=== PATIENT | female | born 1940 | race Caucasian/White ===

== ENCOUNTER → 2017-01-11 | Outpatient (CLI) | payer MEDICARE ==
[~2017-01-11] MED LIST: AMIO400T4 PO; AMLO10TA2 PO; AMLO5TAB2 PO; AMLO5TAB4 PO; AMOX1TAB64 PO; ASPI-515 PO; ATOR40TA78 PO; CHOL10003 PO; CHOL20002 PO; DABI150C PO; DABI75CA3 PO; DOCU-30 PO; DOXY100T PO; FENO48TA5 PO; FENO54TA17 PO; FURO-92 PO; FURO-93 PO; FURO20TA3 PO; LEVO500T33 PO; LOSA50TA2 PO; NEBI10TA3 PO; NEBI2.5T2 PO; NEBI20TA2 PO; POLY17PO5 PO; POTA10TA PO; POTA20PA8 PO; POTA20TA89 PO; PRAV10TA2 PO; TRAM50TA2 PO; VALS320T2 PO; WARF5TAB PO
== END | disposition home or self-care (01) ==
LOC: LAB 06:59
PROVIDERS: ATTEND Nurse Practitioner Family
DX: I08.1 Rheumatic disorders of both mitral and tricuspid valves (principal)
CPT/HCPCS: 36415; 85610

== ENCOUNTER → 2017-01-24 | Outpatient (CLI) | payer MEDICARE | END | disposition home or self-care (01) | LOC: LAB 07:04 | PROVIDERS: ATTEND Nurse Practitioner Family | DX: I34.0 Nonrheumatic mitral (valve) insufficiency (principal); I34.1 Nonrheumatic mitral (valve) prolapse | CPT/HCPCS: 36415; 85610 ==

== ENCOUNTER → 2017-02-07 | Outpatient (CLI) | payer MEDICARE | END | disposition home or self-care (01) | LOC: LAB 07:02 | PROVIDERS: ATTEND Internal Medicine Cardiovascular Disease | DX: Z95.3 Presence of xenogenic heart valve (principal) | CPT/HCPCS: 36415; 85610 ==

== ENCOUNTER → 2017-02-14 | Outpatient (CLI) | payer MEDICARE | END | disposition home or self-care (01) | LOC: LAB 07:26 | PROVIDERS: ATTEND Internal Medicine Cardiovascular Disease | DX: Z95.2 Presence of prosthetic heart valve (principal) | CPT/HCPCS: 36415; 85610 ==

== ENCOUNTER → 2017-06-16 | Outpatient (CLI) | payer MEDICARE ==
[~2017-06-16] MED LIST changes: +DOCU-131 PO; -DOCU-30 PO; -LEVO500T33 PO; +LEVO500T47 PO; +POTA20PA25 PO; -POTA20PA8 PO
== END | disposition home or self-care (01) ==
LOC: CFH 06:38
PROVIDERS: ATTEND Internal Medicine Cardiovascular Disease
DX: I08.3 Combined rheumatic disorders of mitral, aortic and tricuspid valves (principal); Z95.2 Presence of prosthetic heart valve; Z87.891 Personal history of nicotine dependence; Z86.19 Personal history of other infectious and parasitic diseases
CPT/HCPCS: 93306

== ENCOUNTER → 2017-06-25 | Outpatient (CLI) | payer MEDICARE ==
[2017-06-25 07:14] LABS: ASPARTATE AMINO TRANSFERASE 11 U/L (15-37); BLOOD UREA NITROGEN 12 mg/dL (7-18)
== END | disposition home or self-care (01) ==
LOC: LAB 06:48
PROVIDERS: ATTEND Internal Medicine Cardiovascular Disease
DX: E78.2 Mixed hyperlipidemia (principal); I10 Essential (primary) hypertension
CPT/HCPCS: 36415; 80053; 80061

== ENCOUNTER 2017-08-01 08:41 | Emergency (ER) | payer MEDICARE ==
[~2017-08-01] VITALS: Ht 165.1 cm; Wt 71.0 kg
[2017-08-01] MEDS ORDERED: HYDROmorphone 1 MG/ML, 1ML ONE (10:17)
[2017-08-01] MEDS ORDERED: HYDROmorphone 1 MG/ML, 1ML IVPush PRN (10:30)
[2017-08-01] MEDS ORDERED: SODIUM CHLORIDE FLUSH 10ML SYR IVF ONE (10:30)
[2017-08-01] MEDS ORDERED: ONDANSETRON 2MG/ML, 2ML IVPush ONE (10:30)
[2017-08-01 10:45] VITALS: BP 192/77
== END 2017-08-01 13:11 | disposition home or self-care (01) ==
LOC: ED 13:00
DX: S32.010A Wedge compression fracture of first lumbar vertebra, initial encounter for closed fracture (principal); S66.911A Strain of unspecified muscle, fascia and tendon at wrist and hand level, right hand, initial encounter; E78.5 Hyperlipidemia, unspecified; I10 Essential (primary) hypertension; I48.91 Unspecified atrial fibrillation; M19.90 Unspecified osteoarthritis, unspecified site; Z88.1 Allergy status to other antibiotic agents; W51.XXXA Accidental striking against or bumped into by another person, initial encounter; Y93.89 Activity, other specified; Y99.8 Other external cause status; Y92.89 Other specified places as the place of occurrence of the external cause
CPT/HCPCS: 72110; 73110; 96374; 99284; J1170

== ENCOUNTER → 2017-10-03 | Outpatient (CLI) | payer MEDICARE ==
[~2017-10-03] MED LIST changes: +CHOL500015 PO; +PRAV20TA2 PO
== END | disposition home or self-care (01) ==
LOC: CFH 13:14
PROVIDERS: ATTEND Internal Medicine Critical Care Medicine
DX: M48.56XA Collapsed vertebra, not elsewhere classified, lumbar region, initial encounter for fracture (principal); K80.20 Calculus of gallbladder without cholecystitis without obstruction; X58.XXXA Exposure to other specified factors, initial encounter; Y93.89 Activity, other specified; Y92.89 Other specified places as the place of occurrence of the external cause; Y99.8 Other external cause status; R06.09 Other forms of dyspnea
CPT/HCPCS: 71250

== ENCOUNTER → 2017-10-25 | Outpatient (CLI) | payer MEDICARE, OTHER | END | disposition home or self-care (01) | LOC: CFH 07:40 | PROVIDERS: ATTEND Orthopaedic Surgery | DX: S32.019A Unspecified fracture of first lumbar vertebra, initial encounter for closed fracture (principal); M43.16 Spondylolisthesis, lumbar region; X58.XXXA Exposure to other specified factors, initial encounter; Y93.89 Activity, other specified; Y92.89 Other specified places as the place of occurrence of the external cause; Y99.8 Other external cause status | CPT/HCPCS: 72110 ==

== ENCOUNTER 2017-10-31 10:11 | Emergency (ER) | payer MEDICARE, OTHER ==
[~2017-10-31] VITALS: Ht 165.1 cm; Wt 73.2 kg
[2017-10-31 11:14] LABS: BASOPHILS # (AUTO) 0.03 x10^3/uL (0-0.1); BASOPHILS % (AUTO) 0 % (0-1); EOSINOPHILS # (AUTO) 0.11 x10^3/uL (0-0.4); EOSINOPHILS % (AUTO) 1 % (1-7); LYMPHOCYTES # (AUTO) 1.34 x10^3/uL (1-3.4); LYMPHOCYTES % (AUTO) 15 % (22-44); MD NO; MEAN CORPUSCULAR HEMOGLOBIN 30.2 pg (27.0-34.8); MEAN CORPUSCULAR HGB CONC 33.7 g/dL (32.4-35.8); MEAN CORPUSCULAR VOLUME 89.6 fL (80-100); MEAN PLATELET VOLUME 10.5 fL (7.4-10.4); MONOCYTES % (AUTO) 9 % (2-9); NEUTROPHILS # (AUTO) 6.94 x10^3/uL (1.8-6.8); NEUTROPHILS % (AUTO) 75 % (42-75); PLATELET COUNT 292 x10^3/uL (130-400); RED BLOOD COUNT 4.74 x10^6/uL (3.82-5.3)
[2017-10-31] MEDS ORDERED: TRAV5DRO EACHEYE (11:24)
[2017-10-31] MEDS ORDERED: POTA99TA24 PO (11:24)
[2017-10-31] MEDS ORDERED: FLUT100B IH (11:24)
[2017-10-31 11:26] LABS: ALANINE AMINOTRANSFERASE 15 U/L (12-78); ALBUMIN 3.5 g/dL (3.4-5.0); ANION GAP 6 mmol/L (5-15); CALCIUM 8.7 mg/dL (8.5-10.1); CHLORIDE 110 mmol/L (98-107); CREATININE 1.31 mg/dL (0.55-1.02)
[2017-10-31 11:28] LABS: ALKALINE PHOSPHATASE 168 U/L (45-117); BILIRUBIN,TOTAL 1.2 mg/dL (0.2-1.0); TOTAL PROTEIN 7.6 g/dL (6.4-8.2)
[2017-10-31] MEDS ORDERED: SODIUM CHLORIDE FLUSH 10ML SYR IVF ONE (11:30)
[2017-10-31] MEDS ORDERED: SODIUM CHLORIDE 0.9% 1,000ML IVBOLUS ONE (11:30)
[2017-10-31 13:02] LABS: MICROSCOPIC INDICATED
[2017-10-31 13:09] LABS: CULTURE INDICATED? YES
[2017-10-31] MEDS ORDERED: CEFDINIR 300 MG CAPSULE ONE (13:27)
[2017-10-31] MEDS ORDERED: CEFDINIR 300 MG CAPSULE PO ONE (13:30)
[2017-10-31 13:32] VITALS: BP 170/61
== END 2017-10-31 14:12 | disposition home or self-care (01) ==
LOC: ED 11:35
DX: E86.0 Dehydration (principal); N39.0 Urinary tract infection, site not specified; R41.0 Disorientation, unspecified; I10 Essential (primary) hypertension
CPT/HCPCS: 36415; 71046; 80053; 81001; 84443; 85025; 87086; 93005; 96360; 99285; J7030

== ENCOUNTER → 2017-11-22 | Outpatient (CLI) | payer MEDICARE ==
[~2017-11-22] MED LIST changes: -AMIO400T4 PO; +AMIO400T5 PO; +FLUT100B IH; +POTA99TA24 PO; +TRAV5DRO EACHEYE
== END | disposition home or self-care (01) ==
LOC: CFH 08:47
PROVIDERS: ATTEND Licensed Practical Nurse
DX: Z13.820 Encounter for screening for osteoporosis (principal); Z12.31 Encounter for screening mammogram for malignant neoplasm of breast; N95.8 Other specified menopausal and perimenopausal disorders
CPT/HCPCS: 77080

== ENCOUNTER → 2018-01-16 | Outpatient (CLI) | payer OTHER | END | disposition home or self-care (01) | LOC: CFH 14:04 | PROVIDERS: ATTEND Orthopaedic Surgery | DX: S32.019A Unspecified fracture of first lumbar vertebra, initial encounter for closed fracture (principal); M51.36 Other intervertebral disc degeneration, lumbar region; X58.XXXA Exposure to other specified factors, initial encounter; Y93.89 Activity, other specified; Y92.89 Other specified places as the place of occurrence of the external cause; Y99.8 Other external cause status | CPT/HCPCS: 72110 ==

== ENCOUNTER → 2018-03-22 | Outpatient (CLI) | payer OTHER ==
[2018-03-22 12:45] LABS: CHLORIDE 111 mmol/L (98-107)
[2018-03-22 12:51] LABS: CULTURE INDICATED? YES; MICROSCOPIC INDICATED
[2018-03-22 12:53] LABS: BASOPHILS # (AUTO) 0.04 x10^3/uL (0-0.1); BASOPHILS % (AUTO) 1 % (0-1); EOSINOPHILS # (AUTO) 0.22 x10^3/uL (0-0.4); EOSINOPHILS % (AUTO) 3 % (1-7); LYMPHOCYTES % (AUTO) 15 % (22-44); MD NO; MEAN CORPUSCULAR HEMOGLOBIN 29.5 pg (27.0-34.8); MEAN CORPUSCULAR HGB CONC 33.3 g/dL (32.4-35.8); MEAN CORPUSCULAR VOLUME 88.6 fL (80-100); MEAN PLATELET VOLUME 10.7 fL (7.4-10.4); MONOCYTES # (AUTO) 0.73 x10^3/uL (0.2-0.8); MONOCYTES % (AUTO) 9 % (2-9); NEUTROPHILS % (AUTO) 73 % (42-75); PLATELET COUNT 315 x10^3/uL (130-400); RED BLOOD COUNT 4.04 x10^6/uL (3.82-5.3); RED CELL DISTRIBUTION WIDTH 13.8 % (9.6-15.2)
[2018-03-22 12:54] LABS: HCT (SEDRATE) 36.4 % (34.6-47.8)
[2018-03-22 13:00] LABS: ALANINE AMINOTRANSFERASE 17 U/L (12-78); ALBUMIN 3.4 g/dL (3.4-5.0); ALKALINE PHOSPHATASE 159 U/L (45-117); BILIRUBIN, DIRECT 0.2 mg/dL (0.1-0.2); CALCIUM 8.2 mg/dL (8.5-10.1); CREATININE 0.99 mg/dL (0.55-1.02); FREE T4 (FREE THYROXINE) 1.37 ng/dL (0.76-1.46); TOTAL PROTEIN 7.2 g/dL (6.4-8.2)
[2018-03-22 13:01] LABS: ANION GAP 7 mmol/L (5-15)
== END ==
LOC: CFH 07:11
PROVIDERS: ATTEND Registered Nurse
DX: R41.3 Other amnesia (principal)
CPT/HCPCS: 36415; 80053; 81001; 82175; 82248; 82525; 83655; 83825; 84100; 84439; 84443; 85025; 85651; 86038; 87086

== ENCOUNTER → 2018-03-29 | Outpatient (CLI) | payer MEDICARE ==
[~2018-03-29] MED LIST changes: +GADOBUTROL 7.5 MMOL/7.5 ML PFS ONE
== END | disposition home or self-care (01) ==
LOC: RAD 12:46
PROVIDERS: ATTEND Registered Nurse
DX: I67.82 Cerebral ischemia (principal); I63.9 Cerebral infarction, unspecified; R90.82 White matter disease, unspecified
CPT/HCPCS: 70553; A9585

== ENCOUNTER → 2018-04-17 | Outpatient (CLI) | payer MEDICARE ==
[~2018-04-17] MED LIST changes: -GADOBUTROL 7.5 MMOL/7.5 ML PFS ONE
== END | disposition home or self-care (01) ==
LOC: CARD 07:50
PROVIDERS: ATTEND Registered Nurse
DX: R41.3 Other amnesia (principal)
CPT/HCPCS: 95819

== ENCOUNTER 2018-06-07 04:18 | Emergency (ER) | payer MEDICARE ==
[~2018-06-07] VITALS: Ht 165.1 cm; Wt 70.0 kg
[2018-06-07] MEDS ORDERED: LIDOCAINE-MPF 2%, 2ML ONE (04:51)
[2018-06-07] MEDS ORDERED: LIDOCAINE 2%, 20ML INFIL ONE (05:00)
[2018-06-07 06:14] LABS: BASOPHILS # (AUTO) 0.04 x10^3/uL (0-0.1); BASOPHILS % (AUTO) 0 % (0-1); EOSINOPHILS # (AUTO) 0.17 x10^3/uL (0-0.4); EOSINOPHILS % (AUTO) 2 % (1-7); LYMPHOCYTES % (AUTO) 14 % (22-44); MD NO; MEAN CORPUSCULAR HEMOGLOBIN 30.5 pg (27.0-34.8); MEAN CORPUSCULAR HGB CONC 34.4 g/dL (32.4-35.8); MEAN CORPUSCULAR VOLUME 88.8 fL (80-100); MEAN PLATELET VOLUME 9.9 fL (7.4-10.4); MONOCYTES # (AUTO) 0.77 x10^3/uL (0.2-0.8); MONOCYTES % (AUTO) 9 % (2-9); NEUTROPHILS # (AUTO) 6.49 x10^3/uL (1.8-6.8); NEUTROPHILS % (AUTO) 75 % (42-75); PLATELET COUNT 264 x10^3/uL (130-400); RED BLOOD COUNT 4.04 x10^6/uL (3.82-5.3); RED CELL DISTRIBUTION WIDTH 13.7 % (9.6-15.2)
[2018-06-07 06:26] LABS: INTERNATIONAL NORMALIZED RATIO 1.05 (0.93-1.1); PROTHROMBIN TIME 10.8 Seconds (9.6-11.5)
[2018-06-07] MEDS ORDERED: METHOCARBAMOL 750 MG TABLET ONE (06:27)
[2018-06-07] MEDS ORDERED: ACETAMINOPHEN 325 MG TABLET ONE (06:27)
[2018-06-07 06:28] LABS: ALBUMIN 3.6 g/dL (3.4-5.0); ANION GAP 9 mmol/L (5-15); CALCIUM 8.3 mg/dL (8.5-10.1); CHLORIDE 115 mmol/L (98-107); CREATININE 0.92 mg/dL (0.55-1.02)
[2018-06-07] MEDS ORDERED: ACETAMINOPHEN 325 MG TABLET PO ONE (06:30)
[2018-06-07] MEDS ORDERED: METHOCARBAMOL 750 MG TABLET PO ONE (06:30)
[2018-06-07 06:51] VITALS: BP 149/62
== END 2018-06-07 06:53 | disposition home or self-care (01) ==
LOC: ED 06:50
DX: S01.81XA Laceration without foreign body of other part of head, initial encounter (principal); M19.90 Unspecified osteoarthritis, unspecified site; E78.5 Hyperlipidemia, unspecified; I48.91 Unspecified atrial fibrillation; I10 Essential (primary) hypertension; Z87.891 Personal history of nicotine dependence; W01.0XXA Fall on same level from slipping, tripping and stumbling without subsequent striking against object, initial encounter; Y93.89 Activity, other specified; Y99.8 Other external cause status; Y92.009 Unspecified place in unspecified non-institutional (private) residence as the place of occurrence of the external cause
CPT/HCPCS: 12052; 36415; 70450; 80048; 82040; 85025; 85610; 99285; J3490

== ENCOUNTER 2018-12-01 08:48 | Emergency (ER) | payer MEDICARE ==
[~2018-12-01] VITALS: Ht 165.1 cm; Wt 71.7 kg
[~2018-12-01 08:48] MED LIST changes: +AMLO-150 PO; -AMLO10TA2 PO; +AMLO10TA8 PO; -AMLO5TAB2 PO; -CHOL20002 PO; +CHOL200052 PO
[2018-12-01 08:52] VITALS: BP 157/71
[2018-12-01 09:34] LABS: CULTURE INDICATED? YES; MICROSCOPIC INDICATED
[2018-12-01 09:45] LABS: BASOPHILS # (AUTO) 0.02 x10^3/uL (0-0.1); BASOPHILS % (AUTO) 0 % (0-1); EOSINOPHILS # (AUTO) 0.13 x10^3/uL (0-0.4); EOSINOPHILS % (AUTO) 1 % (1-7); LYMPHOCYTES % (AUTO) 12 % (22-44); MD NO; MEAN CORPUSCULAR HEMOGLOBIN 30.7 pg (27.0-34.8); MEAN CORPUSCULAR VOLUME 90.2 fL (80-100); MEAN PLATELET VOLUME 10.2 fL (7.4-10.4); MONOCYTES # (AUTO) 0.72 x10^3/uL (0.2-0.8); MONOCYTES % (AUTO) 8 % (2-9); NEUTROPHILS # (AUTO) 7.61 x10^3/uL (1.8-6.8); NEUTROPHILS % (AUTO) 79 % (42-75); PLATELET COUNT 305 x10^3/uL (130-400); RED BLOOD COUNT 4.49 x10^6/uL (3.82-5.3); RED CELL DISTRIBUTION WIDTH 13.7 % (9.6-15.2)
[2018-12-01 10:03] LABS: ALANINE AMINOTRANSFERASE 16 U/L (12-78); ALBUMIN 3.7 g/dL (3.4-5.0); ANION GAP 8 mmol/L (5-15); CALCIUM 8.6 mg/dL (8.5-10.1); CHLORIDE 118 mmol/L (98-107); CREATININE 1.16 mg/dL (0.55-1.02)
[2018-12-01 10:14] LABS: ALKALINE PHOSPHATASE 159 U/L (45-117); BILIRUBIN,TOTAL 0.9 mg/dL (0.2-1.0); TOTAL PROTEIN 7.5 g/dL (6.4-8.2)
--- NOTE | 2018-12-01 11:18 | NUR ---
TASK RN: FIRST CONTACT WITH PT. Patient/Caregiver given discharge instructions and they have confirmed that they understand the instructions. Patient ambulatory with steady gait. PT LEFT WITH ALL PERSONAL BELONGINGS. PT WITH DAUGHTER AND FRIEND.
== END 2018-12-01 11:20 | disposition home or self-care (01) ==
LOC: ED 09:46
DX: R41.82 Altered mental status, unspecified (principal); E78.5 Hyperlipidemia, unspecified; I48.91 Unspecified atrial fibrillation
CPT/HCPCS: 36415; 80053; 81001; 85025; 87086; 87147; 99283

== ENCOUNTER 2019-01-01 08:05 | Outpatient (CLI) | payer MEDICARE | END 2019-01-01 23:59 | disposition home or self-care (01) | LOC: CFH 08:05 | PROVIDERS: ATTEND Family Medicine | DX: G31.9 Degenerative disease of nervous system, unspecified (principal); I48.0 Paroxysmal atrial fibrillation; R93.0 Abnormal findings on diagnostic imaging of skull and head, not elsewhere classified | CPT/HCPCS: 70551 ==

== ENCOUNTER → 2019-04-09 | Outpatient (CLI) | payer MEDICARE ==
[2019-04-09 07:30] LABS: ANION GAP 6 mmol/L (5-15); CALCIUM 8.7 mg/dL (8.5-10.1); CHLORIDE 113 mmol/L (98-107)
== END | disposition home or self-care (01) ==
LOC: CVU 07:05
PROVIDERS: ATTEND Internal Medicine Cardiovascular Disease
DX: I08.3 Combined rheumatic disorders of mitral, aortic and tricuspid valves (principal); I65.23 Occlusion and stenosis of bilateral carotid arteries; M89.9 Disorder of bone, unspecified; E78.00 Pure hypercholesterolemia, unspecified; I10 Essential (primary) hypertension; Z79.899 Other long term (current) drug therapy
CPT/HCPCS: 0399T; 36415; 80048; 82306; 93306; 93880

== ENCOUNTER 2019-10-13 09:30 | Inpatient (IN) | payer MEDICARE ==
[~2019-10-13] VITALS: Ht 162.6 cm; Wt 80.5 kg
[~2019-10-13 09:30] MED LIST changes: +FENO48TA17 PO; -FENO48TA5 PO; -TRAV5DRO EACHEYE; +TRAV5DRO LEFTEYE
--- NOTE | 2019-10-13 10:09 | NUR ---
TASK RN: PIV ESTABLISHED BY NURSING STUDENTUNDER GUIDANCE OF THIS RN. LABS DRAWN. PT ATTACHED TO FULL MONITOR.
[2019-10-13 10:32] LABS: BASOPHILS # (AUTO) 0.03 x10^3/uL (0-0.1); BASOPHILS % (AUTO) 0 % (0-1); EOSINOPHILS # (AUTO) 0.16 x10^3/uL (0-0.4); EOSINOPHILS % (AUTO) 1 % (1-7); LYMPHOCYTES # (AUTO) 0.64 x10^3/uL (1-3.4); LYMPHOCYTES % (AUTO) 5 % (22-44); MD NO; MEAN CORPUSCULAR HEMOGLOBIN 29.8 pg (27.0-34.8); MEAN CORPUSCULAR HGB CONC 32.4 g/dL (32.4-35.8); MEAN CORPUSCULAR VOLUME 91.9 fL (80-100); MEAN PLATELET VOLUME 10.5 fL (7.4-10.4); MONOCYTES # (AUTO) 0.72 x10^3/uL (0.2-0.8); MONOCYTES % (AUTO) 6 % (2-9); NEUTROPHILS # (AUTO) 10.45 x10^3/uL (1.8-6.8); NEUTROPHILS % (AUTO) 87 % (42-75); PLATELET COUNT 290 x10^3/uL (130-400); RED BLOOD COUNT 4.56 x10^6/uL (3.82-5.3); RED CELL DISTRIBUTION WIDTH 14.5 % (9.6-15.2)
[2019-10-13 10:39] LABS: ALBUMIN 3.9 g/dL (3.4-5.0); CALCIUM 8.4 mg/dL (8.5-10.1); CREATININE 0.86 mg/dL (0.55-1.02)
[2019-10-13 10:42] LABS: TROPONIN I < 0.015 ng/mL (0.000-0.045)
--- NOTE | 2019-10-13 10:42 | NUR ---
PT RESTING ON GURNEY. NADN. GUZMAN.
[2019-10-13 10:46] LABS: ANION GAP 6 mmol/L (5-15); CHLORIDE 112 mmol/L (98-107)
--- NOTE | 2019-10-13 11:40 | NUR ---
PT AWARE OF POC FOR CTA. PT RESTING ON GURNEY. NADN. GUZMAN.
--- NOTE | 2019-10-13 11:45 | NUR ---
PT TAKEN FOR CTA IN STABLE CONDITION.
[2019-10-13] MEDS ORDERED: OMNIPAQUE 350 MG/ML, 100ML BOTTLE ONE (11:58)
--- NOTE | 2019-10-13 12:23 | NUR ---
ERP DR. BOSWELL AT BEDSIDE FOR RE-EVALUATION.
[2019-10-13] MEDS ORDERED: FUROSEMIDE 40 MG/4 ML ONE (12:28)
[2019-10-13] MEDS ORDERED: FUROSEMIDE 20 MG/2 ML IV ONE (12:30)
[2019-10-13] MEDS ORDERED: MEMA10TA PO (12:39)
[2019-10-13] MEDS ORDERED: POTA20TA89 PO (12:39)
[2019-10-13] MEDS ORDERED: ESCI20TA10 PO (12:40)
[2019-10-13] MEDS ORDERED: ROSU20TA2 PO (12:41)
--- NOTE | 2019-10-13 13:07 | NUR ---
REPORT GIVEN TO JEREMY HUA RN. ALL QUESTIONS ANSWERED. AWAITING PT TRANSPORT.
[2019-10-13] MEDS ORDERED: ACETAMINOPHEN 325 MG TABLET PO PRN (13:30)
[2019-10-13] MEDS ORDERED: hydrALAzine 20 MG/ML, 1ML IVPush PRN (13:30)
[2019-10-13] MEDS ORDERED: ONDANSETRON 2MG/ML, 2ML IVPush PRN (13:30)
[2019-10-13 13:50] VITALS: BP 172/80
[2019-10-13 15:43] VITALS: BP 173/70
[2019-10-13] MEDS: HEPARIN 5,000 UNITS/ML, 1ML SQ SCH (16:36)
[2019-10-13] MEDS: FUROSEMIDE 40 MG/4 ML IV SCH (16:37)
[2019-10-13] MEDS: POTASSIUM CHLORIDE 20 MEQ TAB.ER.PRT PO SCH (16:38)
[2019-10-13 16:48] VITALS: BP 154/80
[2019-10-13 20:25] VITALS: BP 126/65
[2019-10-13] MEDS: ATORVASTATIN 80 MG TABLET PO SCH (21:06)
[2019-10-13] MEDS: CHOLECALCIFEROL 1,000 UNIT TABLET PO SCH (21:06)
[2019-10-13] MEDS: MEMANTINE 10MG TABLET PO SCH (21:06)
[2019-10-13] MEDS: AMLODIPINE 5 MG TABLET PO SCH (21:06)
[2019-10-13] MEDS: ASPIRIN 81 MG TABLET EC PO SCH (21:06)
[2019-10-13] MEDS: ESCITALOPRAM 10MG TABLET PO SCH (21:07)
[2019-10-13] MEDS: TRAVOPROST OPHTH 0.004%, 2.5ML LEFTEYE SCH (22:12)
[2019-10-14 00:43] VITALS: BP 155/65
[2019-10-14] MEDS: HEPARIN 5,000 UNITS/ML, 1ML SQ SCH ×3 (00:47→17:37)
[2019-10-14 05:42] LABS: ANION GAP 5 mmol/L (5-15); CALCIUM 8.3 mg/dL (8.5-10.1); CHLORIDE 108 mmol/L (98-107)
[2019-10-14 05:44] LABS: CREATININE 0.91 mg/dL (0.55-1.02)
[2019-10-14 05:58] LABS: BASOPHILS # (AUTO) 0.03 x10^3/uL (0-0.1); BASOPHILS % (AUTO) 0 % (0-1); EOSINOPHILS # (AUTO) 0.31 x10^3/uL (0-0.4); EOSINOPHILS % (AUTO) 4 % (1-7); LYMPHOCYTES # (AUTO) 1.29 x10^3/uL (1-3.4); LYMPHOCYTES % (AUTO) 17 % (22-44); MD SCAN; MEAN CORPUSCULAR HEMOGLOBIN 30.4 pg (27.0-34.8); MEAN CORPUSCULAR HGB CONC 32.8 g/dL (32.4-35.8); MEAN CORPUSCULAR VOLUME 92.9 fL (80-100); MEAN PLATELET VOLUME 10.8 fL (7.4-10.4); MONOCYTES # (AUTO) 1.06 x10^3/uL (0.2-0.8); MONOCYTES % (AUTO) 14 % (2-9); NEUTROPHILS # (AUTO) 5.02 x10^3/uL (1.8-6.8); NEUTROPHILS % (AUTO) 65 % (42-75); PLATELET COUNT 245 x10^3/uL (130-400); RED BLOOD COUNT 3.92 x10^6/uL (3.82-5.3); RED CELL DISTRIBUTION WIDTH 14.3 % (9.6-15.2)
[2019-10-14 07:13] VITALS: BP 130/67
[2019-10-14] MEDS ORDERED: POTASSIUM CHLORIDE 20 MEQ TAB.ER.PRT PO ONE ×2 (08:00→12:00)
[2019-10-14] MEDS: FUROSEMIDE 40 MG/4 ML IV SCH ×2 (09:58→17:30)
[2019-10-14] MEDS: AMLODIPINE 5 MG TABLET PO SCH ×2 (09:59→21:40)
[2019-10-14] MEDS: POTASSIUM CHLORIDE 20 MEQ TAB.ER.PRT PO SCH ×2 (09:59→17:30)
[2019-10-14] MEDS: ESCITALOPRAM 10MG TABLET PO SCH (10:00)
[2019-10-14] MEDS: MEMANTINE 10MG TABLET PO SCH ×2 (10:00→21:44)
[2019-10-14] MEDS: VALSARTAN 320 MG TABLET PO SCH (10:00)
[2019-10-14] MEDS ORDERED: IBUP200T64 PO (10:56)
[2019-10-14 12:27] VITALS: BP 112/69
[2019-10-14 18:26] VITALS: BP 150/76
[2019-10-14] MEDS: ATORVASTATIN 80 MG TABLET PO SCH (21:39)
[2019-10-14] MEDS: CHOLECALCIFEROL 1,000 UNIT TABLET PO SCH (21:40)
[2019-10-14] MEDS: ASPIRIN 81 MG TABLET EC PO SCH (21:40)
[2019-10-14] MEDS: TRAVOPROST OPHTH 0.004%, 2.5ML LEFTEYE SCH (21:40)
[2019-10-15 01:05] VITALS: BP 113/64
[2019-10-15] MEDS: HEPARIN 5,000 UNITS/ML, 1ML SQ SCH ×2 (02:34→11:19)
[2019-10-15 07:27] VITALS: BP 148/72
[2019-10-15 08:28] LABS: ALANINE AMINOTRANSFERASE 15 U/L (12-78); ANION GAP 5 mmol/L (5-15); CALCIUM 8.4 mg/dL (8.5-10.1); CHLORIDE 110 mmol/L (98-107); CREATININE 0.93 mg/dL (0.55-1.02)
[2019-10-15 08:31] LABS: ALKALINE PHOSPHATASE 187 U/L (45-117); BILIRUBIN,TOTAL 0.9 mg/dL (0.2-1.0); TOTAL PROTEIN 6.3 g/dL (6.4-8.2)
[2019-10-15] MEDS ORDERED: ESCITALOPRAM 10MG TABLET PO SCH (09:00)
[2019-10-15] MEDS: AMLODIPINE 5 MG TABLET PO SCH (09:37)
[2019-10-15] MEDS: FUROSEMIDE 40 MG/4 ML IV SCH (09:37)
[2019-10-15] MEDS: MEMANTINE 10MG TABLET PO SCH (09:37)
[2019-10-15] MEDS: VALSARTAN 320 MG TABLET PO SCH (09:37)
[2019-10-15] MEDS: POTASSIUM CHLORIDE 20 MEQ TAB.ER.PRT PO SCH (09:38)
[2019-10-15 13:03] VITALS: BP 146/76
== END 2019-10-15 13:30 | disposition home or self-care (01) | DRG 291 ==
LOC: ED 09:57 → EDIP 12:30 → 5SO 14:21 → DCLOUNGE 10-15 13:20
PROVIDERS: ADMIT Internal Medicine; ATTEND Internal Medicine
DX: I11.0 Hypertensive heart disease with heart failure (principal); J96.01 Acute respiratory failure with hypoxia; D72.829 Elevated white blood cell count, unspecified; I50.33 Acute on chronic diastolic (congestive) heart failure; I48.0 Paroxysmal atrial fibrillation; F41.9 Anxiety disorder, unspecified; K59.09 Other constipation; M19.90 Unspecified osteoarthritis, unspecified site; Z90.710 Acquired absence of both cervix and uterus; Z95.2 Presence of prosthetic heart valve
CPT/HCPCS: 36415; 71045; 80053; 99285; J1644; J1940; Q9967

== ENCOUNTER 2019-12-05 08:19 | Outpatient (CLI) | payer MEDICARE ==
[~2019-12-05 08:19] MED LIST changes: +ESCI20TA10 PO; +FENO48TA10 PO; -FENO48TA17 PO; +IBUP200T64 PO; +MEMA10TA PO; +ROSU20TA2 PO
== END 2019-12-05 23:59 | disposition home or self-care (01) ==
LOC: CFH 08:19
PROVIDERS: ATTEND Licensed Practical Nurse
DX: M81.0 Age-related osteoporosis without current pathological fracture (principal); M85.9 Disorder of bone density and structure, unspecified; N95.9 Unspecified menopausal and perimenopausal disorder
CPT/HCPCS: 77080

== ENCOUNTER 2021-03-30 10:11 | Inpatient (IN) | payer MEDICARE ==
[~2021-03-30] VITALS: Ht 162.6 cm; Wt 83.1 kg
[~2021-03-30 10:11] MED LIST changes: +AMLO-211 PO; -AMLO10TA8 PO; -ASPI-515 PO; +ASPI-963 PO; +FURO40TA6 PO; +POTA20TA14 PO; -WARF5TAB PO; +WARF5TAB2 PO
--- NOTE | 2021-03-30 11:10 | NUR ---
BREAK RN: THIS IS A 80 YEAR OLD FEMALE WITH DAUGHTER AT BS. PT HAS INCREASE SOB WITH MINIMAL EXERTION. PT PLACED ON PUBLIC RELATIONS MANAGER IRREGULAR AT 60, CONTINOUS SP02 RA AT 96% AND CYCLE VS. AWAIT MD FOR ORDERS.
--- NOTE | 2021-03-30 11:53 | NUR ---
able to straight cath pt for urine with erp okay. pt attempted to provide urine sample earlier and missed the cup. urine walked to lab. pt resting comfortably in bed. no stated needs at this time. will continue to monitor. daughter at bedside.
--- NOTE | 2021-03-30 11:54 | NUR ---
lab in now drawing blood cultures
[2021-03-30 12:14] LABS: MICROSCOPIC INDICATED
[2021-03-30 12:15] LABS: BASOPHILS % (AUTO) 0 % (0-1); EOSINOPHILS % (AUTO) 1 % (1-7); LYMPHOCYTES % (AUTO) 8 % (22-44); MEAN CORPUSCULAR HGB CONC 34.1 g/dL (32.4-35.8); MEAN PLATELET VOLUME 9.5 fL (7.4-10.4); MONOCYTES % (AUTO) 12 % (2-9); NEUTROPHILS % (AUTO) 79 % (42-75); PLATELET COUNT 199 x10^3/uL (130-400); RED CELL DISTRIBUTION WIDTH 13.5 % (9.6-15.2)
[2021-03-30 12:29] LABS: ALBUMIN 2.9 g/dL (3.4-5.0); ANION GAP 34 mmol/L (5-15); CALCIUM 7.5 mg/dL (8.5-10.1); CHLORIDE 96 mmol/L (98-107)
[2021-03-30] MEDS ORDERED: CEFTRIAXONE 1,000 MG IM ONE (12:30)
[2021-03-30 12:32] LABS: ALANINE AMINOTRANSFERASE 13 U/L (12-78); ALKALINE PHOSPHATASE 144 U/L (45-117); BILIRUBIN,TOTAL 0.9 mg/dL (0.2-1.0)
[2021-03-30] MEDS ORDERED: CEFTRIAXONE 1,000 MG ONE (12:40)
[2021-03-30] MEDS ORDERED: SODIUM CHLORIDE FLUSH 10ML SYR IVF ONE (13:00)
[2021-03-30] MEDS ORDERED: SODIUM CHLORIDE 0.9% 1,000ML IVBOLUS ONE (13:00)
[2021-03-30] MEDS ORDERED: CEFTRIAXONE 1,000 MG in DEXTROSE 5% 50 ML IVPB ONE (13:00)
--- NOTE | 2021-03-30 13:22 | NUR ---
REPORT GIVEN TO LYDIA ESCAMILLA
[2021-03-30] MEDS ORDERED: DOCUSATE 100 MG CAPSULE PO PRN (14:30)
[2021-03-30] MEDS ORDERED: LIDODERM 5% PATCH TD PRN (14:30)
[2021-03-30] MEDS ORDERED: POLYETHYLENE GLYCOL 17 GM PACKET PO PRN (14:30)
[2021-03-30] MEDS: HEPARIN 5,000 UNITS/ML, 1ML SQ SCH ×2 (14:30→20:56)
[2021-03-30] MEDS ORDERED: MELATONIN 5 MG TABLET PO PRN (14:30)
[2021-03-30] MEDS ORDERED: ENALAPRILAT 1.25 MG/ML, 2ML IVPush PRN (14:30)
[2021-03-30] MEDS ORDERED: ACETAMINOPHEN 325 MG TABLET PO PRN (14:30)
[2021-03-30] MEDS ORDERED: HYDROcodone/APAP 5/325 TABLET PO PRN (14:30)
[2021-03-30] MEDS ORDERED: ONDANSETRON 2MG/ML, 2ML IVPush PRN (14:30)
[2021-03-30] MEDS ORDERED: LACTATED RINGERS 1,000 ML IV SCH (14:30)
[2021-03-30 20:29] VITALS: BP 161/64
[2021-03-30] MEDS: POTASSIUM CHLORIDE 20 MEQ TAB.ER.PRT PO SCH (20:30)
[2021-03-30] MEDS: AMLODIPINE 10 MG TAB PO SCH (20:56)
[2021-03-30] MEDS: CEFTRIAXONE 1,000 MG in DEXTROSE 5% 50 ML IVPB SCH (20:56)
[2021-03-30] MEDS: MEMANTINE 10MG TABLET PO SCH (20:56)
[2021-03-30] MEDS ORDERED: CHOLECALCIFEROL 1,000 UNIT TABLET PO SCH (21:00)
[2021-03-30] MEDS ORDERED: ATORVASTATIN 80 MG TABLET PO SCH (21:00)
[2021-03-30] MEDS ORDERED: ASPIRIN 81 MG TABLET EC PO SCH (21:00)
[2021-03-30] MEDS ORDERED: TRAVOPROST OPHTH 0.004%, 2.5ML LEFTEYE SCH (21:00)
[2021-03-30] MEDS ORDERED: FUROSEMIDE 40 MG TABLET PO ONE (21:45)
[2021-03-31 01:20] VITALS: BP 163/73
[2021-03-31] MEDS: HEPARIN 5,000 UNITS/ML, 1ML SQ SCH ×2 (05:12→14:00)
[2021-03-31 05:43] LABS: BASOPHILS % (AUTO) 1 % (0-1); EOSINOPHILS % (AUTO) 1 % (1-7); LYMPHOCYTES % (AUTO) 11 % (22-44); MEAN CORPUSCULAR HEMOGLOBIN 30.8 pg (27.0-34.8); MEAN CORPUSCULAR HGB CONC 34.2 g/dL (32.4-35.8); MEAN PLATELET VOLUME 10.1 fL (7.4-10.4); MONOCYTES % (AUTO) 11 % (2-9); NEUTROPHILS % (AUTO) 77 % (42-75); PLATELET COUNT 244 x10^3/uL (130-400); RED BLOOD COUNT 4.31 x10^6/uL (3.82-5.3); RED CELL DISTRIBUTION WIDTH 13.3 % (9.6-15.2)
[2021-03-31 06:00] LABS: CHLORIDE 110 mmol/L (98-107)
[2021-03-31 06:10] LABS: ALANINE AMINOTRANSFERASE 13 U/L (12-78); ALBUMIN 3.3 g/dL (3.4-5.0); ALKALINE PHOSPHATASE 165 U/L (45-117); ANION GAP 8 mmol/L (5-15); BILIRUBIN,TOTAL 1.2 mg/dL (0.2-1.0); CALCIUM 8.4 mg/dL (8.5-10.1); TOTAL PROTEIN 7.1 g/dL (6.4-8.2)
[2021-03-31 07:03] VITALS: BP 150/81
[2021-03-31] MEDS ORDERED: FUROSEMIDE 40 MG TABLET PO SCH ×2 (08:00→17:00)
[2021-03-31] MEDS ORDERED: NEBIVOLOL HCL 5 MG TABLET PO SCH (09:00)
[2021-03-31] MEDS: MEMANTINE 10MG TABLET PO SCH (10:18)
[2021-03-31] MEDS: CEFTRIAXONE 1,000 MG in DEXTROSE 5% 50 ML IVPB SCH (10:18)
[2021-03-31] MEDS: AMLODIPINE 10 MG TAB PO SCH (10:18)
[2021-03-31] MEDS: POTASSIUM CHLORIDE 20 MEQ TAB.ER.PRT PO SCH (10:18)
[2021-03-31] MEDS ORDERED: FUROSEMIDE 40 MG TABLET PO ONE (11:30)
[2021-03-31 12:58] VITALS: BP 127/75
[2021-03-31] MEDS ORDERED: CEFD300C37 PO (15:11)
== END 2021-03-31 17:50 | disposition home or self-care (01) | DRG 690 ==
LOC: ED 13:41 → ORIP 14:26 → 3N 15:15
PROVIDERS: ADMIT Emergency Medicine; ATTEND Hospitalist
PROC: 0T9B70Z Drainage of Bladder with Drainage Device, Via Natural or Artificial Opening (ICD-10-PCS; principal; 2021-03-30)
DX: N30.90 Cystitis, unspecified without hematuria (principal); E87.0 Hyperosmolality and hypernatremia; I50.30 Unspecified diastolic (congestive) heart failure; I11.0 Hypertensive heart disease with heart failure; E86.0 Dehydration; I48.91 Unspecified atrial fibrillation; F03.90 Unspecified dementia, unspecified severity, without behavioral disturbance, psychotic disturbance, mood disturbance, and anxiety; M19.90 Unspecified osteoarthritis, unspecified site; F41.9 Anxiety disorder, unspecified; E78.5 Hyperlipidemia, unspecified; E87.6 Hypokalemia; F01.50 Vascular dementia, unspecified severity, without behavioral disturbance, psychotic disturbance, mood disturbance, and anxiety; Z90.710 Acquired absence of both cervix and uterus; Z88.2 Allergy status to sulfonamides; Z95.2 Presence of prosthetic heart valve; Z79.899 Other long term (current) drug therapy
CPT/HCPCS: 36415; 71045; 80053; 81001; 83605; 83735; 83880; 84100; 85025; 87040; 87086; 93005; 96372; G0378; J0696; J1644; J7030; J7120

== ENCOUNTER → 2021-05-25 | Outpatient (CLI) | payer MEDICARE ==
[~2021-05-25] MED LIST changes: +CEFD300C37 PO
== END | disposition home or self-care (01) ==
LOC: CFH 09:25
PROVIDERS: ATTEND Internal Medicine Cardiovascular Disease
DX: I08.8 Other rheumatic multiple valve diseases (principal); I10 Essential (primary) hypertension; I48.91 Unspecified atrial fibrillation; E78.5 Hyperlipidemia, unspecified; Z95.1 Presence of aortocoronary bypass graft; Z95.2 Presence of prosthetic heart valve
CPT/HCPCS: 93306; 93356